=== PATIENT | male | born 1985 | race Caucasian/White ===

== ENCOUNTER → 2023-12-09 06:20 | Day surgery (SDC) | payer BC, SELFPAY | LOC: GI 06:20 | PROVIDERS: ATTENDING PHYSICIAN Surgery | DX: Z12.11 Encounter for screening for malignant neoplasm of colon (principal); Z86.010 Personal history of colon polyps; K64.1 Second degree hemorrhoids | CPT/HCPCS: G0105 ==

== ENCOUNTER 2024-04-29 06:24 | Day surgery (SDC) | payer BC, SELFPAY ==
[2024-04-29] VITALS (11 sets, daily range): BP systolic 109–154; BP diastolic 70–106; BMI 35.8
[2024-04-29] MEDS: TYLENOL 1000 MG PO (09:15)
[2024-04-29] MEDS: CELEBREX 200 MG PO (09:15)
[2024-04-29] MEDS: NORMOSOL-R/PLASMALYTE-A 1000 IV (09:16)
--- NOTE | 2024-04-29 12:15 | W.IMMPOSTOP ---
Surgical Immed Post Op Note
-
Primary Surgeon: Sky Posadas MD
Assisting Surgeon: Reymundo Bronson MD
Pre-op Diagnosis: Bleeding internal hemorrhoids
Post-op Diagnosis: Bleeding internal hemorrhoids
Procedure Performed: Exam under anesthesia, transanal hemorrhoidal dearterialization x 3�columns, bilateral pudendal nerve block
Anesthesia Type: Spinal with sedation and local
Specimen / Cultures: None
Estimated Blood Loss: 25 mL
Complications: None
Operative Findings: 3�column irritated internal hemorrhoids that were moderate in size; large external component of the internal hemorrhoids in the right anterior and left lateral position; proceeded with THD of all 3 columns
--- NOTE | 2024-04-29 12:18 | OR.RPT ---
Operative Report
Operative Report
DATE OF OPERATION: 04/29/2024
SURGEON: Sky Posadas MD
PREOPERATIVE DIAGNOSIS: Bleeding internal hemorrhoids
POSTOPERATIVE DIAGNOSIS: Bleeding internal hemorrhoids
OPERATION: Exam under anesthesia, transanal hemorrhoidal dearterialization of 3�column internal hemorrhoids, bilateral pudendal nerve block
ASSISTANTS:
1. Reymundo Bronson MD
ANESTHESIA: MAC w/ local and spinal
ESTIMATED BLOOD LOSS: 25 mL
FINDINGS:
1. Moderate-sized irritated internal hemorrhoids in the right posterior, left lateral and right anterior position
2. Moderate to large size external component of the right posterior and left lateral columns
SPECIMENS:
1. None
DRAINS: None
COMPLICATIONS: None
INDICATIONS: The patient is a 39-year-old male who presented to my office with a long history of bleeding internal hemorrhoids. He has undergone more than 6 rubber band ligations over the years and his hemorrhoids have recurred. I performed a
colonoscopy preoperatively which was negative for any colonic bleeding source. Therefore, the patient was recommended to have surgery. I explained that a suture hemorrhoidopexy under THD guidance would be the plan for any concerning internal
hemorrhoids. However, if a hemorrhoid identified on exam under anesthesia is too large for a suture hemorrhoidopexy, I would perform an excisional hemorrhoidectomy. The operation was discussed with the patient in detail, including the risks,
benefits and alternatives. Risks described included, but not limited to, bleeding, infection, urinary retention, damage to nearby structures such as the anal sphincter, fecal incontinence, anal stenosis, recurrence, and anesthetic risks. The patient
understood and agreed to proceed. The consent was signed and placed in the chart.
PROCEDURE IN DETAIL: The patient was taken to the operating room. On the bed, anesthesia performed a spinal block. The patient was then placed on the operating table in prone position. Sequential compression devices were placed bilaterally.
Sedation was commenced without complication. Two seat belts were secured around the legs and upper back. The buttocks were taped apart. The perineum was shaved, prepped and draped in the usual fashion. A time-out was then performed verifying the
correct patient, procedure, operative site, positioning, and special equipment.
Local anesthesia used was a mixture of 60 mL of 0.25% Marcaine epinephrine and 0.6 mg of dexamethasone. 40 mL was injected perianally at the beginning of the case. The anorectal exam was performed assessing all four quadrants of the anal canal
using Hill-[place] retractors in progressively increasing size. Immediately noted were large external hemorrhoids in the right posterior and left lateral position. There was no concern for thrombosis or infection associated with these
hemorrhoids. Within the anal canal, there were moderate�sized irritated internal hemorrhoids in the right posterior, left lateral and right anterior position. Despite the size of the external hemorrhoids, the patient's primary complaint is
intermittent bleeding, which would most likely be from his irritated internal hemorrhoids. Additionally, I discussed the risks of formal hemorrhoidectomy with the patient, including significant pain and the patient indicated to me his preference
for suture ligation. I elected to proceed with suture ligation and hemorrhoidopexy using THD guidance. Using the THD retractor with U/S probe, the hemorrhoid was exposed. I ligated the pedicle of the hemorrhoid after identifying it with audible
doppler signal with a 2-0 Vicryl in a figure-of-8 fashion, leaving the tail long. I took running mucosal bites of the hemorrhoid distally toward the dentate line, stopping 1 cm above the dentate line. I tied this down to the long tail in order to
pexy the hemorrhoid. Hemostasis was confirmed. The remaining internal hemorrhoids were ligated and pexied in a similar fashion.
The anal canal was checked for hemostasis, which was ensured. The remaining 20 mL of local were injected. 5 mL was injected bilaterally for a pudendal nerve block. 10 mL was injected around the surgical site and perianally. The smallest
Hill-[place] was used to check hemostasis once more, which was confirmed. Surgicel was placed in the anal canal prophylactically.
At this point, the procedure was complete. All needle, sponge and instrument counts were correct. The patient tolerated the procedure well and was transferred to the recovery room in stable condition with gauze dressing in place secured with silk
tape.
Of note, Reymundo Bronson MD, email marketing assistant, was necessary during this procedure for traction, countertraction, and exploratory purposes. I was present for the entire duration of the case.
DICTATED BY: Sky Posadas MD
== END 2024-04-29 17:15 | disposition home or self-care (01) ==
LOC: SDS 06:24
PROVIDERS: ATTENDING PHYSICIAN Surgery
DX: K64.8 Other hemorrhoids (principal)
CPT/HCPCS: 46948